=== PATIENT | male | born 1995 | race African-American/Black ===

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

== ENCOUNTER 2017-06-04 00:17 | Emergency (ER) | payer MEDICAID ==
[~2017-06-04] VITALS: Ht 188 cm; Wt 175.0 kg
[~2017-06-04 00:17] MED LIST: CLIN150 PO; MAGICADU2 SWISH-SWAL; PRED-503 PO
[2017-06-04 00:31] VITALS: PULSE 69; RESP 20; TEMP 98.1; O2SAT 98
[2017-06-04] MEDS ORDERED: RESP: ALBUTEROL 2.5 MG/IPRATROPIUM 0.5 MG NEB (SCH) NEB ONE (01:00)
[2017-06-04] MEDS ORDERED: predniSONE 50 MG TAB PO ONE (01:00)
--- NOTE | 2017-06-04 01:09 | PD ---
HPI Chief Complaint: Cold / Flu Symptoms Time Seen by Provider: 00:43 Travel History International Travel<30 days: No Contact w/Intl Traveler<30days: No Traveled to known affect area: No History of Present Illness HPI The patient is a 22-year-old male who presents to the emergency department for cough and cold symptoms of several days' duration. The patient states he has had a productive cough producing white to yellow sputum for a week and a half. He also notes intermittent episodes of shortness of breath and wheezing. The patient does have a history of asthma, does not currently have his inhaler. The patient is from [place], [place]. He denies any fever, chills, or sweats. He denies any chest pain, but does note occasional chest tightness associated with wheezing. He denies any nausea, vomiting, diarrhea, abdominal pain, or lower extremity edema. Symptoms are moderate. The patient is currently a college student at a local university. PFSH Past Medical History Asthma: Yes Diminished Hearing: No Tetanus Vaccination: Unknown Influenza Vaccination: No Past Surgical History Surgical History: No Previous Surgery Social History Alcohol Use: No Tobacco Use: No Substance Use: Yes (marijauna) Allergies-Medications (Allergen,Severity, Reaction): Coded Allergies: penicillin G (Unverified Allergy, Unknown, Rash, 06/04/17) Reported Meds & Prescriptions Reported Meds & Active Scripts Active Deltasone (Prednisone) 20 Mg Tab 20 Mg PO TID Magic Mouthwash Adult Liq (Multi-Ingredient Mouthwash/Gargle) 120 Ml Susp 5 Ml SWISH-SWAL Q2HR Each 5mL contains: Nystatin 200,000units, Diphenhydramine 4.25mg, Viscous Lidocaine 10mg, Lees syrup 0.8 mL Cleocin (Clindamycin HCl) 150 Mg Cap 300 Mg PO Q6H Review of Systems Except as stated in HPI: all other systems reviewed are Neg General / Constitutional: No: Fever HENT: No: Lightheadedness Cardiovascular: No: Chest Pain or Discomfort Respiratory: Positive: Cough, Shortness of Breath, Wheezing Gastrointestinal: No: Nausea, Vomiting, Abdominal Pain Musculoskeletal: No: Edema Neurologic: No: Dizziness Physical Exam Narrative GENERAL: Awake, alert, pleasant 22-year-old male who appears his stated age and is in no acute respiratory distress. SKIN: Focused skin assessment warm/dry. HEAD: Atraumatic. Normocephalic. EYES: No injection or drainage. ENT: No nasal bleeding or discharge. Mucous membranes pink and moist. NECK: Trachea midline. No JVD. CARDIOVASCULAR: Regular rate and rhythm. No murmur appreciated. RESPIRATORY: No accessory muscle use. Prolonged expiratory phase with a few prolonged expiratory wheezes. MUSCULOSKELETAL: No obvious deformities. No clubbing. No cyanosis. No edema. NEUROLOGICAL: Awake and alert. No obvious cranial nerve deficits. Motor grossly within normal limits. Normal speech. Nonfocal. PSYCHIATRIC: Appropriate mood and affect; insight and judgment normal. Data Data Last Documented VS Vital Signs Date Time Temp Pulse Resp B/P (MAP) Pulse Ox O2 Delivery O2 Flow Rate FiO2 06/04/17 00:31 98.1 69 20 98 Orders Orders Prednisone (Deltasone) (06/04/17 01:00) Albuterol-Ipratropium Neb (Duoneb Neb) (06/04/17 01:00) [facility] Medical Decision Making Medical Screen Exam Complete: Yes Emergency Medical Condition: Yes Medical Record Reviewed: Yes Differential Diagnosis Differential diagnosis includes reactive airway disease, URI, bronchitis, pneumonia, pneumothorax, pulmonary edema, congestive heart failure. Narrative Course Patient was administered prednisone 50 mg orally and DuoNeb x1. The patient was reevaluated at 1:48 AM, his symptoms have significantly improved. The patient be discharged home on prednisone, albuterol inhaler, Zithromax. He is advised to follow-up with a primary physician. Return if symptoms worsen or progress. Diagnosis Primary Impression: Bronchitis Patient Instructions: General Instructions Additional Instructions: Medications as directed. Follow-up with her primary physician. Return if symptoms worsen or progress. Med/Other Pt SpecificInfo: Prescription(s) given Scripts Azithromycin (Zithromax Z-Mehdi) 250 Mg Dspk 250 MG PO DIRECTED for Infection, #1 DSPK 0 Refills 500 MG (2 tabs) day 1, then 1 tab days 2-5. Prov: Morgan Hernández MD 06/04/17 Albuterol 8.5 GM Inh (Proair Hfa 8.5 GM Inh) 90 Mcg/Act Aer 2 PUFF INH Q6H Y for SHORTNESS OF BREATH, #1 INHALER 0 Refills 108 mcg/actuation Prov: Morgan Hernández MD 06/04/17 Prednisone (Prednisone) 20 Mg Tab 40 MG PO DAILY, #10 TAB 0 Refills Take 40 mg (2 tablets) daily for 5 days Prov: Morgan Hernández MD 06/04/17 Disposition: 01 DISCHARGE HOME Morgan Hernández MD Jun 04, 2017 01:09
[2017-06-04] MEDS ORDERED: ZITHTAB PO (01:49)
[2017-06-04] MEDS ORDERED: PRED20 PO (01:49)
[2017-06-04] MEDS ORDERED: ALBUAER3 INH (01:49)
== END 2017-06-04 02:09 | disposition home or self-care (01) ==
LOC: NEPE 00:17
DX: J40 Bronchitis, not specified as acute or chronic (principal); J45.909 Unspecified asthma, uncomplicated; F12.90 Cannabis use, unspecified, uncomplicated; Z88.0 Allergy status to penicillin; Z79.899 Other long term (current) drug therapy
CPT/HCPCS: 94664; 99283; J7512

== ENCOUNTER 2017-08-01 19:36 | Emergency (ER) | payer SELFPAY ==
[~2017-08-01 19:36] MED LIST changes: +ALBUAER3 INH; +PRED20 PO; +ZITHTAB PO
[2017-08-01 19:41] VITALS: BP 147/74; PULSE 85; RESP 18; TEMP 98.9; O2SAT 98
[2017-08-01] MEDS ORDERED: PRED-503 PO (20:43)
[2017-08-01] MEDS ORDERED: AZIT500T2 PO (20:43)
[2017-08-01] MEDS ORDERED: VENTAER INH (20:43)
--- NOTE | 2017-08-01 20:43 | PD ---
HPI Chief Complaint: Cold / Flu Symptoms Time Seen by Provider: 20:31 Travel History International Travel<30 days: No Contact w/Intl Traveler<30days: No Traveled to known affect area: No History of Present Illness HPI 22-year-old male presents to the emergency department with complaint of nasal congestion, cough, chest tightness, shortness of breath that started yesterday. Does not know if he is been diagnosed with asthma in the past, but says he has used an "asthma pump" before. Denies wheezing. Denies sore throat or ear pain. Denies fever, vomiting. Has taken night and day cold and flu medication for symptom management, with no relief. No known aggravating or relieving factors. Symptoms are mild to moderate in severity. No primary care provider. Allergies to penicillin. Denies significant past medical history, with questionable history of asthma. Has no other medical complaints. No other modifying factors or associated signs and symptoms per [facility] Past Medical History Asthma: Yes Diminished Hearing: No Immunizations Current: Yes Past Surgical History Surgical History: No Previous Surgery Social History Alcohol Use: No Tobacco Use: No Substance Use: No ([facility]X [facility]) Allergies-Medications (Allergen,Severity, Reaction): Coded Allergies: penicillin G (Unverified Allergy, Unknown, Rash, 08/01/17) Reported Meds & Prescriptions Reported Meds & Active Scripts Active Deltasone (Prednisone) 20 Mg Tab 40 Mg PO DAILY 4 Days start 08/02/2017 Ventolin Hfa 18 GM Inh (Albuterol Sulfate) 90 Mcg/Act Aer 2 Puff INH Q4-6H PRN Azithromycin 500 Mg Tab 500 Mg PO DAILY Zithromax Z-Mehdi (Azithromycin) 250 Mg Dspk 250 Mg PO DIRECTED 500 MG (2 tabs) day 1, then 1 tab days 2-5. Proair Hfa 8.5 GM Inh (Albuterol Sulfate) 90 Mcg/Act Aer 2 Puff INH Q6H PRN 108 mcg/actuation Prednisone 20 Mg Tab 40 Mg PO DAILY Take 40 mg (2 tablets) daily for 5 days Deltasone (Prednisone) 20 Mg Tab 20 Mg PO TID Magic Mouthwash Adult Liq (Multi-Ingredient Mouthwash/Gargle) 120 Ml Susp 5 Ml SWISH-SWAL Q2HR Each 5mL contains: Nystatin 200,000units, Diphenhydramine 4.25mg, Viscous Lidocaine 10mg, Lees syrup 0.8 mL Cleocin (Clindamycin HCl) 150 Mg Cap 300 Mg PO Q6H Review of Systems Except as stated in HPI: all other systems reviewed are Neg Physical Exam Narrative GENERAL: Well-nourished, well-developed black male patient, in no acute distress ; afebrile, nontoxic-appearing SKIN: Warm and dry. HEAD: Atraumatic. Normocephalic. No sinus tenderness on palpation. EYES: Pupils equal and round. No scleral icterus. No injection or drainage. ENT: Mucosa pink and moist. No erythema or exudates. No uvular edema. No uvular , palatal, or tonsillar deviation. Airway patent. EARS: Bilateral pinnae and external canals appear within normal limits. Bilateral tympanic membranes without erythema, dullness or perforation. NECK: Trachea midline. No lymphadenopathy. CARDIOVASCULAR: Regular rate and rhythm. No murmur appreciated. RESPIRATORY: No accessory muscle use. Lungs with decreased lung sounds and mild wheezing in bilateral bases on auscultation. Breath sounds equal bilaterally. No retractions or tachypnea. No Audible wheezing noted. GASTROINTESTINAL: Obese. MUSCULOSKELETAL: No obvious deformities. No clubbing. No cyanosis. No edema. NEUROLOGICAL: Awake and alert. Oriented 3. No obvious cranial nerve deficits. Motor grossly within normal limits. Normal speech. Moves all extremities. 5/5 strength to all extremities. PSYCHIATRIC: Appropriate mood and affect; insight and judgment normal. Data Data Last Documented VS Vital Signs Date Time Temp Pulse Resp B/P (MAP) Pulse Ox O2 Delivery O2 Flow Rate FiO2 08/01/17 19:41 98.9 85 18 147/74 (98) 98 Orders Orders Prednisone (Deltasone) (08/01/17 20:45) Albuterol-Ipratropium Neb (Duoneb Neb) (08/01/17 20:45) Ed Discharge Order (08/01/17 21:06) [facility] Medical Decision Making Medical Screen Exam Complete: Yes Emergency Medical Condition: Yes Medical Record Reviewed: Yes Differential Diagnosis Viral illness, bronchitis, pneumonia, asthma exacerbation Narrative Course 22-year-old male with HPI and physical exam consistent with acute bronchitis. No acute distress. Oxygen saturation is 98% on room air. No retractions or tachypnea. No audible wheezing. DuoNeb, Deltasone ordered. 2105: The examination the patient lung sounds are improved with increase in lung sounds in bilateral bases. No wheezing noted on auscultation of the lung sounds. Patient reports improvement in his symptoms and says he feels like he can breathe easier. Deltasone, Ventolin inhaler, azithromycin prescribed for home. Instructed patient to follow up with primary care provider. Patient verbalizes understanding and agreement with treatment plan. Patient is medically cleared and stable for discharge. Discussed reasons to return to the emergency department. Patient agrees with treatment plan. The patients vital signs are stable and the patient is stable for outpatient follow-up and treatment. Patient discharged home, stable and in no acute distress. Diagnosis Primary Impression: Acute bronchitis Qualified Codes: J20.9 - Acute bronchitis, unspecified Referrals: [facility] Primary Care Physician Patient Instructions: Acute Bronchitis (ED), Cold Symptoms (ED), General Instructions, Safe Use of Cough and Cold Medicines (DC), Safe Use of Cough and Cold Medicines (ED) Departure Forms: School Release, Return to School Date: Aug 03, 2017 Tests/Procedures, Work Release Enter return to work date: Aug 03, 2017 Additional Instructions: Use Albuterol inhaler as prescribed Take oral steroids as prescribed and complete full course [id number] decongestants or antihistamines as directed and as needed for symptom management Drink plenty of fluids to prevent dehydration Use hot air humidifier to decrease cough exacerbation Turn off ceiling fans and sleep with head of bed elevated Avoid triggers such as second hand smoke, dust, known allergens Follow-up with your primary care provider Return to the emergency department immediately with worsening of symptoms Med/Other Pt SpecificInfo: Prescription(s) given Scripts Prednisone (Deltasone) 20 Mg Tab 40 MG PO DAILY for 4 Days, #8 TAB 0 Refills start 08/02/2017 Prov: Catie Morley NEONATOLOGIST 08/01/17 Albuterol 18 GM Inh (Ventolin Hfa 18 GM Inh) 90 Mcg/Act Aer 2 PUFF INH Q4-6H Y for SOB/WHEEZING, #1 INHALER 0 Refills Prov: Catie Morley NEONATOLOGIST 08/01/17 Azithromycin (Azithromycin) 500 Mg Tab 500 MG PO DAILY for Infection, #5 TAB 0 Refills Prov: Catie Morley NEONATOLOGIST 08/01/17 Disposition: 01 DISCHARGE HOME Condition: Stable Catie Morley Aug 01, 2017 20:43
[2017-08-01] MEDS ORDERED: RESP: ALBUTEROL 2.5 MG/IPRATROPIUM 0.5 MG NEB (SCH) INH ONE (20:45)
[2017-08-01] MEDS ORDERED: predniSONE 20 MG TAB PO ONE (20:45)
== END 2017-08-01 21:18 | disposition home or self-care (01) ==
LOC: NEPK 19:36
DX: J20.9 Acute bronchitis, unspecified (principal); R09.81 Nasal congestion
CPT/HCPCS: 94664; 99283; J7512